=== PATIENT | female | born 1990 | race African-American/Black ===

== ENCOUNTER 2018-04-27 11:21 | Emergency (ER) | payer OTHER ==
[~2018-04-27] VITALS: Ht 167.6 cm; Wt 59.1 kg
[2018-04-27 11:33] VITALS: BP 124/59
[2018-04-27] MEDS ORDERED: PROTONIX20 MG PO (11:48)
[2018-04-27] MEDS ORDERED: DOXYCYCLINE 10100 MG PO (11:58)
[2018-04-27 12:05] VITALS: PULSE 81; TEMP 97.8
== END 2018-04-27 12:04 | disposition home or self-care (01) ==
LOC: COL.ER 11:21
DX: L02.214 Cutaneous abscess of groin (principal); R22.2 Localized swelling, mass and lump, trunk